=== PATIENT | female | born 1970 | race Asian ===

== ENCOUNTER 2017-11-28 17:53 | Observation (INO) | payer BC ==
[2017-11-28 18:48] LABS: Urine Amorphous Sediment 4+ /HPF (NONE SEEN); Urine Bacteria <20 /HPF (<20); Urine Culture Reflex Order NOT NEEDED; Urine RBC <5 /HPF (NONE SEEN)
[2017-11-28] MEDS ORDERED: ONDANSETRON 4 MG/2 ML VIAL ONE (18:54)
[2017-11-28] MEDS ORDERED: NA CHLORIDE 0.9% 1,000 ML ONE ×2 (18:54→23:04)
[2017-11-28 18:58] LABS: Absolute Lymphocytes (CBC) 1.2 K/uL (0.7-4.9); Absolute Neutrophil 14.3 K/uL (1.8-8.0); Basophils % 0.1 % (0-1.3); Hematocrit 40.9 % (36.0-45.0); Lymphocytes % 7.1 % (15.3-44.8); MCH 31.4 pg (27.0-35.0); MCV 91.7 fL (80-100); MPV 8.7 fL (7.6-11.3); Monocytes % 6.2 % (3.3-12.3); RBC Red Blood Cell Count 4.46 M/uL (3.86-4.86)
--- NOTE | 2017-11-28 20:26 | RAD REPORT ---
EXAM DESCRIPTION: US - Abdomen Exam Limited - 11/28/2017 7:03 pm CLINICAL HISTORY: Abdominal pain COMPARISON: None. FINDINGS: No mobile gallstones confirmed. There is echogenic nonshadowing debris along the posterior wall of the gallbladder. This could be adherent tumefactive sludge. nonshadowing gallstones would be possible. The finding is not the typical appearance for a polyp. A few punctate areas of cholesterol osis noted not typically of acute clinical significance. There is no wall thickening or pericholecyst ic fluid. No common duct stone or biliary tree dilatation identified. IMPRESSION: Echogenic material adherent to the gallbladder wall is believed to be tumefactive sludge . Nonshadowing stones or polyp lesser in consideration. No wall thickening, pericholecystic fluid or biliary tree abnormality.
[2017-11-28 20:28] LABS: Blood Morphology Comment NOT SEEN (NOT SEEN); Platelet Estimate ADEQ; Urine White Blood Cell Casts OK
[2017-11-28 20:39] LABS: ALT/SGPT 37 IU/L (10-60); AST/SGOT 29 IU/L (10-42); Albumin 3.7 g/dL (3.2-5.5); Alkaline Phosphatase 45 IU/L (42-121); Amylase Level 87 U/L (28-100); BUN Blood Urea Nitrogen 8 mg/dL (6-20); Bicarbonate 22 mEq/L (21-31); Bilirubin Direct 0.1 mg/dL (0-0.2); Bilirubin Total 0.4 mg/dL (0.3-1.2); Glucose Level 97 mg/dL (65-120); Lipase 24 U/L (22-51); Potassium 3.8 mEq/L (3.6-5.0); Protein, Total 6.5 g/dL (6.0-8.3); Sodium Level 141 mEq/L (135-145)
[2017-11-28 20:54] LABS: Urine Blood 2+ (NEG); Urine Glucose NEGATIVE (NEG); Urine Protein NEGATIVE (NEG); Urine Specific Gravity 1.015 (1.005-1.030)
--- NOTE | 2017-11-28 22:14 | RAD REPORT ---
EXAM DESCRIPTION: CT - Abdomen Pelvis W Contrast - 11/28/2017 9:46 pm CLINICAL HISTORY: Abdominal pain, epigastric pain COMPARISON: None. TECHNIQUE: Biphasic, helical CT imaging of the abdomen and pelvis was performed following 100 ml non -ionic IV contrast. No oral contrast administered. All CT scans are performed using dose optimization technique as appropriate and may include automated exposure control or mA/KV adjustment according to patient size. FINDINGS: No suspicious findings in the lung bases. No pericardial thickening or effusion. Bilateral breast implants are in place. The liver, spleen, and pancreas show no suspicious findings. Gallstones can be occult on CT imaging. Castorena of the gallbladder are mildly prominent. Hyperdense material in the dependent portion the gallb ladder could be gallstones. Echogenic material was seen on the ultrasound study. No biliary tree dila tation. No pericholecystic fluid. Symmetric renal function is seen with no hydronephrosis or suspicious renal mass. No pyelonephritis o r acute renal parenchymal process. No dilated bowel loops or bowel wall thickening. No free air, free fluid or inflammatory stranding. No hernia, mass or bulky lymphadenopathy. The urinary bladder is without significant finding. No adr enal abnormality. No ovarian abnormality. Endometrium is prominent but no focal abnormality seen. No myometrial mass. No suspicious bony findings. IMPRESSION: No obstruction, free air or surgically emergent finding. There are CT findings of gallst ones and wall thickening not clearly seen at sonography. There is some discrepancy between sonography and CT imaging regarding the gallbladder. An early acut e cholecystitis cannot be excluded. Correlation is needed with exam findings. No biliary tree dilatation or pancreatic abnormality.
--- NOTE | 2017-11-28 22:33 | EDPHYS ---
Physician Documentation [facility] Name: Alexander Mandel Age: 46 yrs Sex: Female : 1970 Arrival Date: 11/28/2017 Time: 17:55 Bed 25 Private MD: ED Physician Jorge Dey HPI: 11/28 18:15 This 46 yrs old Female presents to ER via Ambulatory with complaints of Abdominal kb Pain. 18:15 The patient presents with abdominal pain in the epigastric area. Onset: The kb symptoms/episode began/occurred today. The symptoms do not radiate. Associated signs and symptoms: Pertinent positives: nausea, Pertinent negatives: anorexia, diarrhea, fever, vomiting. The symptoms are described as constant. Modifying factors: The symptoms are alleviated by nothing, the symptoms are aggravated by pressure. Severity of pain: At its worst the pain was moderate in the emergency department the pain is unchanged. The patient has not experienced similar symptoms in the past. The patient has not recently seen a physician. RN TRANSFER: 11/29 01:32 unk rk2 Historical: - Allergies: 11/28 18:00 No Known Allergies; la1 - PMHx: 18:00 None; la1 - Immunization history:: Adult Immunizations up to date. - Social history:: Smoking status: Patient/guardian denies using tobacco. ROS: 18:12 Constitutional: Negative for fever, chills, and weight loss, Cardiovascular: Negative kb for chest pain, palpitations, and edema, Respiratory: Negative for shortness of breath, cough, wheezing, and pleuritic chest pain, Back: Negative for injury and pain, : Negative for injury, bleeding, discharge, and swelling, MS/Extremity: Negative for injury and deformity, Skin: Negative for injury, rash, and discoloration, Neuro: Negative for headache, weakness, numbness, tingling, and seizure. 18:12 Abdomen/GI: Positive for abdominal pain, nausea, Negative for vomiting, diarrhea, constipation, abdominal cramps, abdominal distension, anorexia. Exam: 18:12 Constitutional: This is a well developed, well nourished patient who is awake, alert, kb and in no acute distress. Head/Face: Normocephalic, atraumatic. Chest/axilla: Normal chest wall appearance and motion. Nontender with no deformity. No lesions are appreciated. Cardiovascular: Regular rate and rhythm with a normal S1 and S2. No gallops, murmurs, or rubs. Normal PMI, no JVD. No pulse deficits. Respiratory: Lungs have equal breath sounds bilaterally, clear to auscultation and percussion. No rales, rhonchi or wheezes noted. No increased work of breathing, no retractions or nasal flaring. Skin: Warm, dry with normal turgor. Normal color with no rashes, no lesions, and no evidence of cellulitis. MS/ Extremity: Pulses equal, no cyanosis. Neurovascular intact. Full, normal range of motion. Neuro: Awake and alert, GCS 15, oriented to person, place, time, and situation. Cranial nerves II-XII grossly intact. Motor strength 5/5 in all extremities. Sensory grossly intact. Cerebellar exam normal. Normal gait. 18:12 Abdomen/GI: Inspection: abdomen appears normal, Bowel sounds: normal, in all quadrants, Palpation: soft, in all quadrants, nontender, in the left upper quadrant, right lower quadrant and left lower quadrant, moderate abdominal tenderness, in the right upper quadrant. Vital Signs: 18:00 BP 156 / 74; Pulse 79; Resp 16; Temp 98.6; Pulse Ox 100% on R/A; Weight 52.62 kg; la1 Height 5 ft. 2 in. (157.48 cm); 22:46 BP 146 / 99; Pulse 84; Resp 17; Pulse Ox 100% on R/A; dh3 11/29 00:00 BP 160 / 100; Pulse 82; Resp 16; Pulse Ox 100% on R/A; rk2 00:45 BP 141 / 87; Pulse 89; Resp 17; Pulse Ox 100% on R/A; rk2 11/28 18:00 Body Mass Index 21.22 (52.62 kg, 157.48 cm) la1 MDM: 11/28 18:01 Patient medically screened. kb 18:12 Data reviewed: vital signs, nurses notes. Data interpreted: Pulse oximetry: on room air kb is 100 %. Interpretation: normal. 22:31 Counseling: I had a detailed discussion with the patient and/or guardian regarding: the kb historical points, exam findings, and any diagnostic results supporting the discharge/admit diagnosis, lab results, radiology results, the need for further work-up and treatment in the hospital. Physician consultation: Santiago Cotto MD was contacted at 22:32, regarding admission, to the medical/surgical unit. patient's condition, and will see patient in inpatient room. 11/28 18:02 Order name: Amylase, Serum; Complete Time: 21:14 kb 11/28 18:02 Order name: Basic Metabolic Panel; Complete Time: 21:14 kb 11/28 18:02 Order name: CBC with Diff; Complete Time: 20:39 kb 11/28 18:02 Order name: Hepatic Function; Complete Time: 21:14 kb 11/28 18:02 Order name: Lipase; Complete Time: 21:14 kb 11/28 18:02 Order name: Urine Microscopic Only; Complete Time: 18:50 kb 11/28 18:10 Order name: US Abdomen Limited; Complete Time: 20:27 kb 11/28 19:13 Order name: CBC Smear Scan; Complete Time: 20:39 EDMS 11/28 20:23 Order name: CT Abd/Pelvis - W/Contrast; Complete Time: 22:17 kb 11/28 20:31 Order name: Urine Dipstick--Ancillary (enter results); Complete Time: 20:59 em1 11/28 20:31 Order name: Urine --Ancillary (enter results); Complete Time: 20:59 em1 11/28 18:02 Order name: Urine Test (obtain specimen); Complete Time: 20:29 kb 11/28 18:02 Order name: IV Saline Lock; Complete Time: 18:51 kb 11/28 18:02 Order name: Labs collected and sent; Complete Time: 18:51 kb 11/28 18:02 Order name: Urine Dipstick-Ancillary (obtain specimen); Complete Time: 20:29 kb Administered Medications: 18:45 Drug: NS 0.9% 1000 ml Route: IV; Rate: 1000 ml; Site: left antecubital; lk1 20:00 Follow up: Response: No adverse reaction; IV Status: Completed infusion rk2 18:45 Drug: Zofran 4 mg Route: IVP; Site: left antecubital; lk1 23:50 Follow up: Response: No adverse reaction rk2 23:20 Drug: Zosyn 3.375 grams Route: IVPB; Infused Over: 60 mins; Site: left antecubital; rk2 11/29 00:33 Follow up: Response: No adverse reaction; IV Status: Completed infusion rk2 11/28 23:20 Drug: NS 0.9% 1000 ml Route: IV; Rate: 125 ml/hr; Site: left antecubital; rk2 11/29 01:30 Follow up: IV Status: Infusion continued upon admission rk2 Disposition: 10:04 Co-signature as Attending Physician, Jorge Dey MD. rn Disposition: 11/28/17 22:32 Hospitalization ordered by Santiago Cotto for Observation. Preliminary diagnosis are Acute cholecystitis, Cholelithiasis, Elevated white blood cell count. - Bed requested for Telemetry/MedSurg (observation). - Status is Observation. rk2 - Condition is Stable. - Problem is new. - Symptoms are unchanged. UTI on Admission? No Signatures: Dispatcher [employer] EDMS Valerie Waldron, RAMESH-C DOWEL PIN WORKER-CkAnnie Tadeo RN RN mw Nieto, Roman, MD MD rn Attema, Lee, RN RN la1 Tiffanie Randle RN RN lk1 Karlee Santiago RN RN rk2
--- NOTE | 2017-11-28 22:33 | ER ---
Nurse's Notes [facility] Name: Alexander Mandel Age: 46 yrs Sex: Female : 1970 Arrival Date: 11/28/2017 Time: 17:55 Bed 25 Private MD: Diagnosis: Acute cholecystitis;Cholelithiasis;Elevated white blood cell count Presentation: 11/28 17:59 Presenting complaint: Patient states: I have been having epigastric pain and vomiting la1 since this morning, I went to my PCP and they sent me here to R/O gallbladder. Transition of care: patient was not received from another setting of care. Onset of symptoms was November 28, 2017. Initial Sepsis Screen: Does the patient meet any 2 criteria? No. Patient's initial sepsis screen is negative. Does the patient have a suspected source of infection? No. Patient initial sepsis screen negative. Care prior to arrival: None. 17:59 Method Of Arrival: Ambulatory la1 17:59 Acuity: CISCO 3 la1 GENERATION MANAGER: 11/29 01:32 unk rk2 Historical: - Allergies: 11/28 18:00 No Known Allergies; la1 - PMHx: 18:00 None; la1 - Immunization history:: Adult Immunizations up to date. - Social history:: Smoking status: Patient/guardian denies using tobacco. Screenin:03 Abuse screen: Denies threats or abuse. Denies injuries from another. Nutritional lk1 screening: No deficits noted. Tuberculosis screening: No symptoms or risk factors identified. Fall Risk None identified. Assessment: 18:40 General: Appears uncomfortable, Behavior is calm, cooperative, appropriate for age. lk1 Pain: Complains of pain in epigastric area. Neuro: Level of Consciousness is awake, alert, obeys commands, Oriented to person, place, time, situation. Cardiovascular: Heart tones S1 S2 present Capillary refill is brisk Patient's skin is warm and dry. Respiratory: Airway is patent Respiratory effort is even, unlabored, Respiratory pattern is regular, symmetrical. GI: Bowel sounds present X 4 quads. Abd is soft and non tender. : No signs and/or symptoms were reported regarding the genitourinary system. EENT: No signs and/or symptoms were reported regarding the EENT system. Derm: No signs and/or symptoms reported regarding the dermatologic system. Musculoskeletal: No signs and/or symptoms reported regarding the musculoskeletal system. 20:00 Reassessment: Pt. sleeping in room \T\ this time... appears to be in no obvious distress. rk2 No needs voiced \T\ this time. 21:30 Reassessment: Pt. resting in room \T\ this time... family has been in and out. Pt. rk2 appears to be in no obvious distress. Pt. voiced no needs. 23:00 Reassessment: Pt. up and able to ambulate to restroom on her own without difficulty. rk2 Pt. returned to room. No obvious distress.. no further needs voiced. 11/29 01:04 Reassessment: called report to receiving FRANCY Gamino... pt. to be transported to room 409. rk2 Vital Signs: 11/28 18:00 BP 156 / 74; Pulse 79; Resp 16; Temp 98.6; Pulse Ox 100% on R/A; Weight 52.62 kg; la1 Height 5 ft. 2 in. (157.48 cm); 22:46 BP 146 / 99; Pulse 84; Resp 17; Pulse Ox 100% on R/A; dh3 11/29 00:00 BP 160 / 100; Pulse 82; Resp 16; Pulse Ox 100% on R/A; rk2 00:45 BP 141 / 87; Pulse 89; Resp 17; Pulse Ox 100% on R/A; rk2 11/28 18:00 Body Mass Index 21.22 (52.62 kg, 157.48 cm) la1 ED Course: 11/28 17:55 Patient arrived in ED. as 18:00 Triage completed. la1 18:00 Arm band placed on left wrist. la1 18:01 Valerie Waldron FNP-C is PHCP. kb 18:01 Jorge Dey MD is Attending Physician. kb 18:19 Patient taken to ultrasound. julissa 18:45 Inserted saline lock: 24 gauge in left antecubital area, using aseptic technique. Blood kr2 collected. 18:51 Tiffanie Randle, RN is Primary Nurse. lk1 19:03 US Abdomen Limited In Process Unspecified. EDMS 19:04 Patient has correct armband on for positive identification. Bed in low position. Call lk1 light in reach. Side rails up X2. 19:38 Primary Nurse role handed off by Tiffanie Randle, FRANCY la1 20:13 Karlee Santiago, FRANCY is Primary Nurse. rk2 21:29 CT Abd/Pelvis - W/Contrast Sent. rk2 21:46 CT Abd/Pelvis - W/Contrast In Process Unspecified. EDMS 22:32 Santiago Cotto MD is Hospitalizing Provider. kb 11/29 01:31 No provider procedures requiring assistance completed. Patient admitted, IV remains in rk2 place. Administered Medications: 11/28 18:45 Drug: NS 0.9% 1000 ml Route: IV; Rate: 1000 ml; Site: left antecubital; lk1 20:00 Follow up: Response: No adverse reaction; IV Status: Completed infusion rk2 18:45 Drug: Zofran 4 mg Route: IVP; Site: left antecubital; lk1 23:50 Follow up: Response: No adverse reaction rk2 23:20 Drug: Zosyn 3.375 grams Route: IVPB; Infused Over: 60 mins; Site: left antecubital; rk2 11/29 00:33 Follow up: Response: No adverse reaction; IV Status: Completed infusion rk2 11/28 23:20 Drug: NS 0.9% 1000 ml Route: IV; Rate: 125 ml/hr; Site: left antecubital; rk2 11/29 01:30 Follow up: IV Status: Infusion continued upon admission rk2 Outcome: 11/28 22:32 Decision to Hospitalize by Provider. kb 11/29 01:31 Admitted to Med/surg accompanied by tech, via wheelchair. rk2 Condition: good Instructed on the need for admit. 01:38 Patient left the ED. rk2 Signatures: Dispatcher [employer] EDMS Valerie Waldron, STRUCTURAL STEEL PAINTER-C STRUCTURAL STEEL PAINTER-Sue Meek Lee RN RN la1 Tiffanie Randle, RN RN lk1 Jin Molina jd, [facility] Francesca Irving RN RN kr2 Karlee Santiago, FRANCY RN rk2 Corrections: (The following items were deleted from the chart) 00:39 00:37 BP 160 / 100; Pulse 82bpm; Resp 16bpm; Pulse Ox 100% RA; rk2 rk2
[2017-11-28] MEDS ORDERED: PIPER/TAZO/NS 3.375gm 3.375 GM/100 ML BAG ONE (23:04)
[2017-11-29 01:59] VITALS: BMI 21.5
[2017-11-29] MEDS ORDERED: ACETAMINOPHEN 500 MG TAB PO PRN (02:06)
[2017-11-29] MEDS: NA CHLORIDE 0.9% 1,000 ML IV SCH ×3 (02:06→17:22)
[2017-11-29] MEDS: ONDANSETRON 4 MG/2 ML VIAL IV PRN (02:22)
[2017-11-29] MEDS: MORPHINE 4 MG/ML SYR IV PRN (02:22)
[2017-11-29 05:07] LABS: Absolute Lymphocytes (CBC) 1.5 K/uL (0.7-4.9); Absolute Monocytes 0.8 K/uL (0.1-1.3); Basophils % 0.2 % (0-1.3); Eosinophils % 0.2 % (0-4.4); Hematocrit 37.6 % (36.0-45.0); Lymphocytes % 13.1 % (15.3-44.8); MCH 31.3 pg (27.0-35.0); MCV 92.2 fL (80-100); MPV 9.4 fL (7.6-11.3); Monocytes % 7.1 % (3.3-12.3); RBC Red Blood Cell Count 4.08 M/uL (3.86-4.86)
[2017-11-29 05:30] LABS: ALT/SGPT 46 IU/L (10-60); AST/SGOT 30 IU/L (10-42); Albumin 3.5 g/dL (3.2-5.5); Alkaline Phosphatase 43 IU/L (42-121); BUN Blood Urea Nitrogen 6 mg/dL (6-20); Bicarbonate 24 mEq/L (21-31); Bilirubin Direct 0.1 mg/dL (0-0.2); Bilirubin Total 0.6 mg/dL (0.3-1.2); Glucose Level 114 mg/dL (65-120); Lipase 27 U/L (22-51); Potassium 3.4 mEq/L (3.6-5.0); Protein, Total 6.3 g/dL (6.0-8.3); Sodium Level 136 mEq/L (135-145)
[2017-11-29] MEDS ORDERED: PIPER/TAZO/NS 3.375gm 3.375 GM/100 ML BAG IVPB SCH (06:00)
[2017-11-29] MEDS ORDERED: PIPER/TAZO/NS 3.375gm 3.375 GM/100 ML BAG ONE (06:11)
[2017-11-29] MEDS: PIPER/TAZO/NS 3.375gm 3.375 GM/100 ML BAG IVPB SCH ×2 (09:08→17:22)
--- NOTE | 2017-11-29 19:27 | HP ---
Date of Admission: 11/29/2017 Brief History Of Present Illness: The patient is a 46-year-old female, who presents with compl aints of abdominal pain beginning on Tuesday. She states that the pain was primarily located in the e pigastrium with radiation to the right upper quadrant and left upper quadrant. She has not had simil ar episodes before in the past. She was eating rice and chicken prior to this and not had similar ep isodes before in the past. She states that she got progressive nausea, vomiting, and no change in jarred wel or bladder habits. No fever, chills, or other constitutional complaints. She stated that there were no other aggravating or alleviating factors. The pain continued to be present, however, and she came to the emergency room with the above-stated complaints. Past Medical History: Negative. Past Surgical History: She has had a and a breast augmentation. Allergies: NO KNOWN DRUG ALLERGIES. Social History: She denies smoking, alcohol, recreational drug use. She is a [id number] home. Home Medications: Include Restoril and ferrous sulfate. Family History: Noncontributory. Physical Examination: Vital Signs: At the time of my examination, her BMI is 21.5. Her blood pressure was 120/74, pulse 7 3, respiratory rate 16, temperature 99.6. General: She is awake, alert, and oriented. Psychiatric: She is appropriate and conversive. HEENT: She is normocephalic. Sclerae anicteric. Mucous membranes are moist. Oropharynx is clear. Neck: Supple. No JVD. Chest: Normal expansion and excursion. Cardiovascular: Regular rate and rhythm. Pulmonary: Clear to auscultation bilaterally. Abdomen: Soft with mild epigastric and right upper quadrant tenderness to palpation. Negative Kevin y. No hernias appreciated. Extremities: No clubbing, cyanosis, or edema. Skin: Warm and dry. Laboratory Data: Reveals a white blood count of 11.4 down from 16.6 on admission, hemoglobin 12.8, h ematocrit of 37.6, neutrophils 79.4, platelets 274. Her sodium is 136, potassium 3.4, chloride 107, carbon dioxide 24, BUN 6, creatinine 0.5, glucose is 114, calcium 8.0. Total bilirubin 0.6, direct c omponent 0.1, AST 30, ALT 46, alkaline phosphatase 43, lipase 27. Her UA showed 2+ ketones, 2+ blood , and 4+ amorphous sediments. Her urine test was negative. She had imaging performed, [facility] included an abdominal ultrasound performed on 11/28, which was officially read as echogenic materi al adherent to the gallbladder alas believed to be tumefactive sludge, non-shadowing stones, or poly p lesser consideration. No wall thickening, pericholecystic fluid, or biliary tree abnormality. She had a followup CT scan of the abdomen and pelvis, which was officially read as no obstruction free o r surgically emergent findings. There are CT findings of gallstones and wall thickening, not clearly seen on sonography. There is some discrepancy between sonography and CT imaging regarding the gallb ladder and early acute cholecystitis cannot be excluded. Correlation with a new clinical exam finds. No biliary tree, dilatation or pancreatic abnormality. Assessment And Plan: This is a 46-year-old female comes in with signs and symptoms of cholelithiasis , possible early acute cholecystitis. 1.IV fluid hydration. 2.Antibiotic coverage with Zosyn 3.375 IV q.6. 3.I have explained the risks, benefits, and alternatives of laparoscopic, possible open cholecystect fauzia including, but not limited to bleeding, infection, damage to surrounding tissue, injury to intest ine or bile ducts, need for further operation or procedures. She agrees to proceed as indicated. BHAVYA/LINDA Voice ID: [id number]
[2017-11-30] MEDS: PIPER/TAZO/NS 3.375gm 3.375 GM/100 ML BAG IVPB SCH ×3 (01:02→17:16)
[2017-11-30] MEDS: NA CHLORIDE 0.9% 1,000 ML IV SCH ×2 (04:49→10:06)
[2017-11-30] MEDS ORDERED: PROPOFOL 200 MG/20 ML VIAL IV ONE (10:21)
[2017-11-30] MEDS ORDERED: LIDOCAINE 2% MPF 5 ML VIAL ONE (10:22)
[2017-11-30] MEDS ORDERED: MIDAZOLAM HCL 2 MG/2 ML INJ ONE (10:22)
[2017-11-30] MEDS ORDERED: FENTANYL CITR 250 MCG/5 ML ONE (10:22)
[2017-11-30] MEDS ORDERED: ROCURONIUM 50 MG/5 ML VIAL IV ONE (10:23)
[2017-11-30] MEDS ORDERED: ONDANSETRON 4 MG/2 ML VIAL ONE (10:23)
[2017-11-30] MEDS: BUPIVACA 0.25%/EPI 0.0005%/PF 30 ML VIAL ONE ×2 (10:28→11:15)
[2017-11-30] MEDS ORDERED: GLYCOPYRROLATE 0.2 MG/ML SYR ONE (10:58)
[2017-11-30] MEDS ORDERED: NEOSTIGMINE 1 MG/ML -5 ML SYRINGE ONE (10:59)
[2017-11-30] MEDS ORDERED: EPHEDRINE SULF 50 MG/5 ML SYR ONE (11:08)
[2017-11-30] MEDS: Ringers Lactate 1,000 ML IV ONE ×2 (11:50→11:57)
--- NOTE | 2017-11-30 12:00 | P.OP ---
Preoperative diagnosis: Cholecystitis Postoperative diagnosis: Cholecystitis Primary procedure: Laparoscopic Cholecystectomy Anesthesia: GETA + Local Estimated blood loss: <10cc Specimen: Gallbladder Findings: Acute Cholecystitis Complications: None Transferred to: Recovery Room Condition: Good
[2017-11-30 12:19] VITALS: O2SAT 100
[2017-11-30] MEDS: ONDANSETRON 4 MG/2 ML VIAL IV PRN (13:16)
[2017-11-30] MEDS: MORPHINE 4 MG/ML SYR IV PRN (13:16)
[2017-11-30] MEDS ORDERED: HYDROCODONE/APAP 5/325 MG TAB PO ONE (16:34)
[2017-11-30 17:01] VITALS: BP 141/85; TEMP 98.5
== END 2017-11-30 18:50 | disposition home or self-care (01) ==
LOC: ER 17:53 → ERHOLD 22:54 → 4TH 11-29 00:54 → OBSVTOIN 11-29 08:32 → INTOOBSV 11-29 08:32
PROVIDERS: ADMIT Surgery; ATTEND Surgery
PROC: 0FT44ZZ Resection of Gallbladder, Percutaneous Endoscopic Approach (ICD-10-PCS; principal; 2017-11-30 11:30)
DX: K81.0 Acute cholecystitis (principal)
CPT/HCPCS: 36415; 74177; 76705; 80048; 80076; 81003; 81015; 81025; 82150; 83690; 85025; 88304; 96361; 96365; 96375; 99285; G0378; J2250; J2405; J2543; J2710; J7030; Q9967